=== PATIENT | male | born 1970 | race Caucasian/White ===

== ENCOUNTER → 2022-12-11 | Outpatient (CLI) | payer BC ==
[~2022-12-11] MED LIST: AMIT50 PO; AMITRIPTYLINE; AMLO10 PO; AMOCLA875 PO; ATEN25; ATEN50; ATEN50 PO; BENA20 PO; BUME2 PO; CEPH500 PO; CITA20 PO; CLON.2 PO; CLONIDINE PO; ELAVIL PO; ESCI10; FURO40 PO; HYDACE5; HYDACE5 PO; HYDCHL25 PO; HYDMOR2 PO; HYDROCHLOROTHIZIDE PO; INDO50 PO; LISI10 PO; LISI5 PO; LISINOPRIL PO; LORA10ER; LORA10ER PO; METO50 PO; NEBI5 PO; OLME20; OMEP10ER PO; OMEP20ER; OXYACE5T PO; PENVK500 PO; PROACE100 PO; PROM25 PO; RANI150 PO; RXHYDACE PO; RXHYDMOR2 PO; SPIHYD PO; SULTRIDS PO; [UNRECOGNIZED DRUG - REMARK] PO
== END | disposition home or self-care (01) ==
LOC: LAB SHORT 08:07 → PLD 08:07
DX: D23.72 Other benign neoplasm of skin of left lower limb, including hip (principal)
CPT/HCPCS: 88305

== ENCOUNTER → 2024-05-31 | Outpatient (CLI) | payer BC | LOC: LAB 07:43 → LAB SHORT 07:43 | DX: B35.1 Tinea unguium (principal); L60.2 Onychogryphosis | CPT/HCPCS: 88304; 88312 ==